=== PATIENT | male | born 1960 | race Caucasian/White ===

== ENCOUNTER 2018-11-12 15:42 | Emergency (ER) | payer BC, OTHER ==
[2018-11-12] MEDS ORDERED: Aspirin 325 MG Tab.EC PO ONE (17:25)
--- NOTE | 2018-11-12 17:25 | EDM.PDOC ---
ED HPI GENERAL MEDICAL PROBLEM - General Chief Complaint: Neurological Problem Stated Complaint: [facility] Time Seen by Provider: 11/12/18 15:42 - History of Present Illness INITIAL COMMENTS - FREE TEXT/NARRATIVE: 58-year-old male presents emergency room with marked speech difficulty. Initially the onset time was unknown. Getting a history was very difficult obtaining much information from the patient was limited due to an obvious expressive aphasia. Apparently around 12:30 or 1:00 he sent a text that did not make any sense Patient's daughter did arrive and we really clarify things to an onset time of about noon not in time 1:00 central time. Has no prior history of a stroke. Apparently he had a cardiac angiogram back in 2009 that was unremarkable. The patient is a recovering alcoholic he has not had a drink in many years he has not done any illicit drugs in many years. 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 - Related Data Allergies Allergy/AdvReac Type Severity Reaction Status Date / Time No Known Allergies Allergy Verified 11/12/18 15:49 Home Meds: Home Meds . [Unable to Verify Home Med List] 11/12/18 [History] Past Medical History HEENT History: Reports: Impaired Vision Cardiovascular History: Reports: None Respiratory History: Reports: Pneumonia, Recurrent Other Respiratory History: Mesothelioma Gastrointestinal History: Reports: None Genitourinary History: Reports: None Neurological History: Reports: None Psychiatric History: Reports: None Endocrine/Metabolic History: Reports: None Hematologic History: Reports: None Immunologic History: Reports: None Oncologic (Cancer) History: Reports: None Dermatologic History: Reports: None - Infectious Disease History Infectious Disease History: Reports: None - Past Surgical History Head Surgeries/Procedures: Reports: None Other Musculoskeletal Surgeries/Procedures:: Pt states he has had surgeries, unable to verbalize where at on his body. Social & Family History - Tobacco Use Smoking Status *Q: Never Smoker - Caffeine Use Caffeine Use: Reports: None - Recreational Drug Use Recreational Drug Use: No ED ROS GENERAL - Review of Systems Review Of Systems: See Below Constitutional: Reports: No Symptoms HEENT: Reports: No Symptoms Respiratory: Reports: No Symptoms Cardiovascular: Denies: Chest Pain, Dyspnea on Exertion, Edema, Palpitations Endocrine: Reports: No Symptoms GI/Abdominal: Reports: No Symptoms : Reports: No Symptoms Musculoskeletal: Reports: No Symptoms Skin: Reports: No Symptoms Neurological: Reports: Other (See history of present illness). Denies: Headache , Numbness, Tingling Psychiatric: Reports: No Symptoms ED EXAM, NEURO - Physical Exam Exam: See Below Exam Limited By: Other (But things are somewhat limited by an expressive aphasia he follows directions well however) General Appearance: Alert, No Apparent Distress, Other (Admission blood pressure was 138/97) Eye Exam: Bilateral Eye: EOMI, Normal Inspection, PERRL Head Exam: Atraumatic, Normocephalic Neck: Normal Inspection, Supple, Non-Tender, Full Range of Motion Respiratory/Chest: No Respiratory Distress, Lungs Clear, Normal Breath Sounds Cardiovascular: Regular Rate, Rhythm, No Edema, No Murmur GI/Abdominal: Normal Bowel Sounds, Soft, Non-Tender Neurological: Other (At the time of initial evaluation the patient has a marked expressive aphasia no other significant abnormalities identified patient has equal dermatology technician strength no ulnar drift leg strength is equal bilaterally cranial nerves are otherwise grossly intact) Back Exam: Normal Inspection. No: CVA Tenderness (L), CVA Tenderness (R) Extremities: Normal Inspection, No Pedal Edema Skin Exam: Warm, Dry, Intact EKG INTERPRETATION EKG Date: 11/12/18 Rhythm: NSR [place]: Normal P-Wave: Present QRS: Other (Borderline normal duration mild late transition) ST-T: Other (For the most part normal he's got inverted T's in 3 and some isoelectric T's in the precordial leads) QT: Normal Comparison: NA - No Prior EKG EKG Interpretation Comments: Borderline EKG Course - Vital Signs Last Recorded V/S: Last Vital Signs Temp 36.7 C 11/12/18 15:43 Pulse 73 11/12/18 15:43 Resp 16 11/12/18 15:43 BP 134/97 H 11/12/18 15:45 Pulse Ox 98 11/12/18 15:43 - Orders/Labs/Meds Orders: Active Orders 24 hr Category Date Time Status EKG Documentation Completion [RC] STAT Care 11/12/18 17:20 Active Head wo Cont [CT] Routine Exams 11/12/18 15:37 Taken Labs: Laboratory Tests 11/12/18 11/12/18 11/12/18 Range/Units 15:45 15:45 15:45 WBC 11.62 H (4.23-9.07) K/mm3 RBC 5.10 (4.63-6.08) M/mm3 Hgb 15.5 (13.7-17.5) gm/L Hct 46.8 (40.1-51.0) % MCV 91.8 (79.0-92.2) fl MCH 30.4 (25.7-32.2) pg MCHC 33.1 (32.2-35.5) g/dl RDW Std Deviation 44.8 H (35.1-43.9) fL Plt Count 278 (163-337) K/mm3 MPV 10.5 (9.4-12.3) fl Neut % (Auto) 68.6 H (34.0-67.9) % Lymph % (Auto) 15.8 L (21.8-53.1) % Lee % (Auto) 9.3 (5.3-12.2) % Eos % (Auto) 3.2 (0.8-7.0) Baso % (Auto) 0.7 (0.1-1.2) % Neut # (Auto) 7.97 H (1.78-5.38) K/mm3 Lymph # (Auto) 1.84 (1.32-3.57) K/mm3 Lee # (Auto) 1.08 H (0.30-0.82) K/mm3 Eos # (Auto) 0.37 (0.04-0.54) K/mm3 Baso # (Auto) 0.08 (0.01-0.08) K/mm3 Manual Slide Review Normal smear PT 9.8 (9.7-12.0) SECONDS INR < 0.93 APTT 25 (22-31) SECONDS Sodium 139 (136-145) mEq/L Potassium 3.9 (3.5-5.1) mEq/L Chloride 105 (98-107) mEq/L Carbon Dioxide 26 (21-32) mEq/L Anion Gap 11.9 (5-15) BUN 12 (7-18) mg/dL Creatinine 1.0 (0.7-1.3) mg/dL Est Cr Clr Drug Dosing TNP Estimated GFR (MDRD) > 60 (>60) mL/min BUN/Creatinine Ratio 12.0 L (14-18) Glucose 118 H (74-106) mg/dL Calcium 9.1 (8.5-10.1) mg/dL Total Bilirubin 0.7 (0.2-1.0) mg/dL AST 14 L (15-37) U/L ALT 27 (16-63) U/L Alkaline Phosphatase 81 (46-116) U/L Total Protein 7.2 (6.4-8.2) g/dl Albumin 3.8 (3.4-5.0) g/dl Globulin 3.4 gm/dL Albumin/Globulin Ratio 1.1 (1-2) Meds: Medications Discontinued Medications Generic Name Dose Route Start Last Admin Trade Name Freq PRN Reason Stop Dose Admin Aspirin 325 mg 11/12/18 17:25 11/12/18 17:44 Ecotrin PO 11/12/18 17:26 325 mg ONETIME ONE Administration - Re-Assessments/Exams Free Text/Narrative Re-Assessment/Exam: 11/12/18 17:48 Patient has had some mild improvement his expressive aphasia from the time of admission to the time of disposition. Still a long way from baseline. Patient's stroke score was 7 per nursing staff. Patient's case was discussed with Dr. Goff on-call stroke neurology at [facility] in [place] who agrees on the transfer he recommends going through the emergency room to have a CTA done. Case discussed with Dr. Deleon on-call ER physician was also kind enough to accept the patient Departure - Departure Time of Disposition: 17:50 Disposition: DC/Tfer to Acute Hospital 02 Clinical Impression: CVA (cerebral vascular accident), Expressive aphasia - Discharge Information Referrals: PCP,Not In Area [Primary Care Provider] - Forms: ED Department Discharge - My Orders Last 24 Hours: My Active Orders 11/12/18 15:37 Head wo Cont [CT] Routine 11/12/18 17:20 EKG Documentation Completion [RC] STAT - Assessment/Plan Last 24 Hours: My Active Orders 11/12/18 15:37 Head wo Cont [CT] Routine 11/12/18 17:20 EKG Documentation Completion [RC] STAT
--- NOTE | 2018-11-16 08:50 | CT ---
Head CT Technique: Multiple axial sections through the brain were obtained. Intravenous contrast was not utilized. Comparison: No prior intracranial imaging. Findings: Ventricles along with basal cisterns and sulci over the convexities are mildly prominent. Low density area of encephalomalacia is noted within the right frontal lobe. Small low density finding is noted within the right basal ganglia most likely representing old lacunar infarct. No other abnormal parenchymal densities are seen. No evidence of intracranial hemorrhage. No midline shift or mass effect is seen. Small calvarial defect is seen within the right temporal bone into the right temporal fossa. Uncertain if this is postsurgical or due to old trauma. Slight focal atrophy is noted within the anterior right temporal lobe. No acute calvarial abnormality is otherwise seen on bone window settings. Visualized mastoid sinuses are clear. No acute finding is seen within the visualized paranasal sinuses. Impression: 1. Low density encephalomalacia within the right frontal lobe either due to previous trauma or previous infarct. 2. Slight atrophy within the anterior right temporal lobe most likely due to old trauma. 3. Small calvarial defect within the right temporal bone either due to previous trauma or previous surgery. 4. No acute intracranial abnormality is appreciated. Diagnostic code #3 I agree with preliminary report from [facility], finalized on 11/12/18, 5:05 PM Central Time
== END 2018-11-12 18:13 ==
LOC: JD.ED 15:42 → EDBD 15:42 → JD.ED 18:13
DX: I63.9 Cerebral infarction, unspecified (principal); R47.01 Aphasia
CPT/HCPCS: 36415; 70450; 80053; 85025; 85610; 85730; 93005; 99285; A9270; 93010; 99283